=== PATIENT | male | born 1985 | race Caucasian/White ===

== ENCOUNTER → 2016-08-02 | Outpatient (CLI) | payer OTHER ==
[2016-08-02 11:28] LABS: BASO # 0.1 K/mm3 (0.0-0.2); EOS # 0.1 K/mm3 (0.0-0.50); EOS % 1.2 % (0.0-3.0); LARGE UNSTAINED CELL # 0.1 K/mm3 (0.0-0.4); LARGE UNSTAINED CELL % 2.7 % (0.0-4.0); LYMPH # 2.2 K/mm3 (1.5-4.5); LYMPH % 40.4 % (24.0-44.0); MEAN CORPUSCULAR HEMOGLOBIN 30.6 pg (27.0-33.0); MEAN CORPUSCULAR HGB CONC 33.6 g/dl (32.0-36.5); MEAN CORPUSCULAR VOLUME 91.2 fl (80.0-96.0); MONO # 0.4 K/mm3 (0.0-0.8); MONO % 7.6 % (0.0-5.0); NEUTROPHILS # 2.4 K/mm3 (1.8-7.7); PLATELET COUNT, AUTOMATED 213 k/mm3 (150-450); RED CELL DISTRIBUTION WIDTH 12.3 % (11.5-14.5); WHITE BLOOD COUNT 5.1 K/mm3 (4.0-10.0)
[2016-08-02 11:42] LABS: ALBUMIN 3.6 GM/DL (3.2-5.2); ALBUMIN/GLOBULIN RATIO 1.06 (1.00-1.93); ALKALINE PHOSPHATASE 76 U/L (45-117); ALT/SGPT 32 U/L (12-78); ANION GAP 7 MEQ/L (8-16); AST/SGOT 24 U/L (15-37); BILIRUBIN,TOTAL 0.5 MG/DL (0.2-1.0); BLOOD UREA NITROGEN 15 MG/DL (7-18); CALCIUM LEVEL 8.9 MG/DL (8.5-10.1); CARBON DIOXIDE LEVEL 30 MEQ/L (21-32); CHLORIDE LEVEL 106 MEQ/L (98-107); CHOLESTEROL LEVEL 229 MG/DL (<200); CREATININE FOR GFR 1.37 MG/DL (0.70-1.30); GLOMERULAR FILTRATION RATE > 60.0 (>60); GLUCOSE, FASTING 87 MG/DL (70-105); POTASSIUM SERUM 4.6 MEQ/L (3.5-5.1); SODIUM LEVEL 143 MEQ/L (136-145); TRIGLYCERIDES LEVEL 173 MG/DL (<150)
== END ==
LOC: M LRY 09:17
PROVIDERS: ATTEND Nurse Practitioner Family
DX: R53.83 Other fatigue (principal); Z13.220 Encounter for screening for lipoid disorders

== ENCOUNTER 2016-09-05 12:35 | Emergency (ER) | payer OTHER ==
[~2016-09-05] VITALS: Ht 175.3 cm; Wt 80.9 kg
[2016-09-05] MEDS ORDERED: EXCETAB68 PO (12:44)
--- NOTE | 2016-09-05 14:47 | REP ---
UNILATERAL RIGHT RIBS, PA CHEST: HISTORY: Chest pain. The lungs are clear. The heart is normal in size. The pulmonary vasculature is normal in appearance. The bony structure is intact. IMPRESSION: No acute disease. Signed by Blanco Valentine MD 09/05/2016 02:49 P
[2016-09-05] MEDS ORDERED: TRAM50TA2 PO (14:50)
[2016-09-05 14:56] VITALS: BP 128/73
== END 2016-09-05 15:06 | disposition home or self-care (01) ==
LOC: M ED 13:32
DX: S20.211A Contusion of right front wall of thorax, initial encounter (principal); W19.XXXA Unspecified fall, initial encounter; Y92.89 Other specified places as the place of occurrence of the external cause; Y93.89 Activity, other specified; Y99.8 Other external cause status; Z87.891 Personal history of nicotine dependence

== ENCOUNTER → 2018-04-16 | Outpatient (CLI) | payer BC ==
[~2018-04-16] MED LIST: EXCETAB68 PO; TRAM50TA2 PO
[2018-04-16 17:25] LABS: BASO % 0.4 % (0.0-1.0); EOS # 0.1 10^3/uL (0.0-0.50); EOS % 1.2 % (0.0-3.0); HEMATOCRIT 41.2 % (42.0-52.0); HEMOGLOBIN 13.9 g/dl (13.5-17.5); LYMPH # 2.4 10^3/uL (1.5-4.5); LYMPH % 34.6 % (24.0-44.0); MEAN CORPUSCULAR HEMOGLOBIN 30.5 pg (27.0-33.0); MEAN CORPUSCULAR HGB CONC 33.7 g/dl (32.0-36.5); MEAN CORPUSCULAR VOLUME 90.5 fl (80.0-96.0); MONO # 0.6 10^3/uL (0.0-0.8); MONO % 8.7 % (0.0-5.0); NEUTROPHILS # 3.8 10^3/uL (1.8-7.7); NEUTROPHILS % 54.7 % (36.0-66.0); PLATELET COUNT, AUTOMATED 227 10^3/uL (150-450); RED BLOOD COUNT 4.55 10^6/uL (4.30-6.10); WHITE BLOOD COUNT 6.9 10^3/uL (4.0-10.0)
[2018-04-16 17:33] LABS: ALBUMIN 3.9 GM/DL (3.2-5.2); ALT/SGPT 28 U/L (12-78); BILIRUBIN,TOTAL 0.3 MG/DL (0.2-1.0); BLOOD UREA NITROGEN 23 MG/DL (7-18); CALCIUM LEVEL 8.9 MG/DL (8.5-10.1); CARBON DIOXIDE LEVEL 28 MEQ/L (21-32); CHLORIDE LEVEL 100 MEQ/L (98-107); CREATININE FOR GFR 1.07 MG/DL (0.70-1.30); GLOMERULAR FILTRATION RATE > 60.0 (>60); GLUCOSE, FASTING 81 MG/DL (70-100); IRON (FE) 83 UG/DL (65-175); POTASSIUM SERUM 4.3 MEQ/L (3.5-5.1); SODIUM LEVEL 136 MEQ/L (136-145); TOTAL PROTEIN 7.3 GM/DL (6.4-8.2)
[2018-04-16 17:40] LABS: FOLATE 17.3 NG/ML (>5.4)
[2018-04-19 00:08] LABS: TESTOSTERONE FREE (DIRECT) 10.3 pg/mL (8.7-25.1)
[2018-04-20 07:35] LABS: VITAMIN B12 LEVEL 672 PG/ML (232-1245)
== END ==
LOC: M WUC 15:03
PROVIDERS: ATTEND Nurse Practitioner Family
DX: R53.83 Other fatigue (principal)

== ENCOUNTER → 2018-05-29 | Outpatient (REF) | payer BC ==
[2018-05-29 22:23] LABS: CHLAMYDIA DNA AMPLIFICATION NEGATIVE (NEGATIVE); GC DNA AMPLIFICATION NEGATIVE (NEGATIVE)
== END ==
LOC: M SFHCLERA 17:19
PROVIDERS: ATTEND Nurse Practitioner Family
DX: R10.9 Unspecified abdominal pain (principal)

== ENCOUNTER → 2020-02-21 | Outpatient (CLI) | payer BC ==
--- NOTE | 2020-02-21 20:39 | REP ---
INDICATION: SOB COMPARISON: None. TECHNIQUE: PA and lateral. FINDINGS: The mediastinum and cardiac silhouette are normal. The lung larry are clear and without acute consolidation, effusion, or pneumothorax. The skeletal structures are intact and normal. IMPRESSION: No acute cardiopulmonary process. If the patient remains symptomatic consider chest CT for further investigation. <Electronically signed by Sudhakar Vieyra > 02/21/20 [id number]
== END ==
LOC: M WUC 16:13
PROVIDERS: ATTEND Family Medicine
DX: R06.02 Shortness of breath (principal)

== ENCOUNTER → 2020-02-29 | Outpatient (CLI) | payer BC ==
--- NOTE | 2020-02-29 15:11 | PFTRPT ---
Height: 69.00 Inches Weight: 175.00 Lbs BSA: 1.95 Diagnosis: R06.02 DATE: 02/29/2020 ORDERING PHYSICIAN: Lencho Rawls MD Pre and post bronchodilator studies have excellent technical quality. Forced vital capacity is normal. FEV1 is in proportion. Obstructive index is therefore normal. Expiratory limit of the flow-volume loop is normal. Total lung capacity is normal. Residual volume is generally in proportion. Diffusing capacity is normal. No hemoglobin available for correction. Airway resistance and conductance are normal. IMPRESSION: Essentially normal study. MTDD
== END ==
LOC: M CARPUL 14:39
PROVIDERS: ATTEND Family Medicine
DX: R06.02 Shortness of breath (principal)

== ENCOUNTER 2021-04-10 17:53 | Emergency (ER) | payer BC ==
[~2021-04-10] VITALS: Ht 177.8 cm; Wt 76.9 kg
[2021-04-10 21:43] LABS: BASO % 0.5 % (0.0-1.0); EOS # 0.2 10^3/uL (0.0-0.5); EOS % 2.6 % (0.0-3.0); HEMATOCRIT 41.2 % (42.0-52.0); HEMOGLOBIN 14.3 g/dl (13.5-17.5); LYMPH # 2.8 10^3/uL (1.5-5.0); MEAN CORPUSCULAR HEMOGLOBIN 30.9 pg (27.0-33.0); MEAN CORPUSCULAR HGB CONC 34.7 g/dl (32.0-36.5); MONO # 0.6 10^3/uL (0.0-0.8); MONO % 8.8 % (2.0-8.0); NEUTROPHILS # 2.7 10^3/uL (1.5-8.5); NEUTROPHILS % 42.8 % (36.0-66.0); PLATELET COUNT, AUTOMATED 250 10^3/uL (150-450); RED BLOOD COUNT 4.63 10^6/uL (4.30-6.10); WHITE BLOOD COUNT 6.2 10^3/uL (4.0-10.0)
[2021-04-10 22:05] LABS: CK-MB VALUE MASS < 1.0 NG/ML (<3.6); CPK CREATINE PHOSPHOKINASE 145 U/L (39-308); MB/CK RELATIVE INDEX 0.69 (< OR =4)
[2021-04-10 22:13] LABS: BLOOD UREA NITROGEN 31 MG/DL (7-18); CALCIUM LEVEL 9.3 MG/DL (8.5-10.1); CARBON DIOXIDE LEVEL 29 MEQ/L (21-32); CHLORIDE LEVEL 103 MEQ/L (98-107); CREATININE FOR GFR 0.98 MG/DL (0.70-1.30); GLOMERULAR FILTRATION RATE > 60.0 (>60); GLUCOSE, FASTING 98 MG/DL (70-100); POTASSIUM SERUM 4.1 MEQ/L (3.5-5.1); SODIUM LEVEL 138 MEQ/L (136-145)
[2021-04-11] MEDS ORDERED: NAPROXEN 250 MG TAB PO ONE (01:15)
[2021-04-11] MEDS ORDERED: NAPR-837 PO (01:44)
[2021-04-11 01:52] VITALS: BP 120/75
== END 2021-04-11 01:54 | disposition home or self-care (01) ==
LOC: M ED 17:53
DX: R07.89 Other chest pain (principal); Z86.16 Personal history of COVID-19

== ENCOUNTER → 2021-05-10 | Outpatient (CLI) | payer BC ==
[~2021-05-10] MED LIST changes: +NAPR-837 PO
== END ==
LOC: M PLAIMG 10:09
PROVIDERS: ATTEND Family Medicine
DX: M50.20 Other cervical disc displacement, unspecified cervical region (principal)

== ENCOUNTER → 2021-06-18 | Outpatient (REF) | payer BC | LOC: M LAB REF 09:06 | PROVIDERS: ATTEND Surgery | DX: D17.0 Benign lipomatous neoplasm of skin and subcutaneous tissue of head, face and neck (principal) ==

== ENCOUNTER → 2022-05-06 | Outpatient (CLI) | payer BC | LOC: M RAD 13:38 | PROVIDERS: ATTEND Family Medicine | DX: N44.2 Benign cyst of testis (principal) ==

== ENCOUNTER → 2023-12-26 | Outpatient (CLI) | payer BC | LOC: M WUC 10:00 | PROVIDERS: ATTEND Family Medicine | DX: M54.12 Radiculopathy, cervical region (principal) ==

== ENCOUNTER → 2024-01-17 | Outpatient (CLI) | payer BC ==
[2024-01-17 10:46] LABS: BASO % 0.5 % (0.0-1.0); EOS # 0.1 10^3/uL (0.0-0.5); EOS % 2.3 % (0.0-3.0); HEMATOCRIT 42.7 % (42.0-52.0); HEMOGLOBIN 14.5 g/dl (13.5-17.5); LYMPH # 2.1 10^3/uL (1.5-5.0); LYMPH % 33.7 % (24.0-44.0); MEAN CORPUSCULAR HEMOGLOBIN 30.9 pg (27.0-33.0); MONO # 0.6 10^3/uL (0.0-0.8); MONO % 9.4 % (2.0-8.0); NEUTROPHILS # 3.3 10^3/uL (1.5-8.5); NEUTROPHILS % 53.6 % (36.0-66.0); PLATELET COUNT, AUTOMATED 289 10^3/uL (150-450); RED BLOOD COUNT 4.69 10^6/uL (4.30-6.10); WHITE BLOOD COUNT 6.1 10^3/uL (4.0-10.0)
[2024-01-17 11:17] LABS: ALBUMIN 3.7 G/DL (3.2-5.2); ALKALINE PHOSPHATASE 71 U/L (40-129); ALT/SGPT 39 U/L (7.0-40); AST/SGOT 19 U/L (<34); BILIRUBIN,TOTAL 0.7 MG/DL (0.3-1.2); BLOOD UREA NITROGEN 18 MG/DL (9-23); CALCIUM LEVEL 10.1 MG/DL (8.5-10.1); CARBON DIOXIDE LEVEL 30 MMOL/L (20-31); CHLORIDE LEVEL 106 MMOL/L (98-107); CHOLESTEROL LEVEL 247 MG/DL (<200); CHOLESTEROL RISK RATIO 6.05 (<5); GLOMERULAR FILTRATION RATE > 60.0 (>60); GLUCOSE, FASTING 89 MG/DL (60-100); HDL CHOLESTEROL 40.8 MG/DL (>40); NON-HDL-C 206.2 MG/DL; POTASSIUM SERUM 4.4 MMOL/L (3.5-5.1); SODIUM LEVEL 139 MMOL/L (136-145); TOTAL PROTEIN 7.2 G/DL (5.7-8.2); TRIGLYCERIDES LEVEL 206 MG/DL (<150)
== END ==
LOC: M LAB 09:47
PROVIDERS: ATTEND Family Medicine
DX: Z00.00 Encounter for general adult medical examination without abnormal findings (principal)

== ENCOUNTER → 2024-05-07 | Outpatient (CLI) | payer BC | LOC: M WUC 13:10 | PROVIDERS: ATTEND Physician Assistant | DX: M25.512 Pain in left shoulder (principal) ==